=== PATIENT | male | born 1955 | race Caucasian/White ===

== ENCOUNTER → 2019-02-16 | Outpatient (CLI) | payer OTHER ==
[~2019-02-16] MED LIST: OMEP20TA62 PO; OMNIPAQUE 350 MG/ML, 75ML BOTTLE ONE
== END | disposition home or self-care (01) ==
LOC: RAD 12:43 → EDSTATUS 13:00
PROVIDERS: ATTEND Internal Medicine
DX: J84.10 Pulmonary fibrosis, unspecified (principal); R91.8 Other nonspecific abnormal finding of lung field; R59.0 Localized enlarged lymph nodes
CPT/HCPCS: 36415; 71260; 82565; Q9967

== ENCOUNTER → 2019-03-20 | Outpatient (CLI) | payer OTHER ==
[~2019-03-20] MED LIST changes: -OMNIPAQUE 350 MG/ML, 75ML BOTTLE ONE
== END | disposition home or self-care (01) ==
LOC: CARD 12:37
PROVIDERS: ATTEND Internal Medicine
DX: R05 Cough (principal)
CPT/HCPCS: 94060; 94618; 94726; 94729

== ENCOUNTER 2019-04-03 07:41 | Inpatient (IN) | payer OTHER ==
[~2019-04-03] VITALS: Ht 175.3 cm; Wt 77.7 kg
[~2019-04-03 07:41] MED LIST changes: +ACET325T14 PO; +ALBU8.5H8 INH; +BUPIVACAINE/PF 0.5% ONE; +CELE200C PO; +CHOL500015 PO; +EPINEPHRINE 1 MG/ML, 1ML ONE; +LACT1CAP35 PO; +UMEC1DIS INH
[2019-04-03 08:27] VITALS: BP 120/79
[2019-04-03] MEDS ORDERED: FENTANYL PF 250 MCG/5ML ONE (08:27)
[2019-04-03] MEDS ORDERED: MIDAZOLAM 1 MG/ML, 2ML ONE (08:27)
[2019-04-03] MEDS ORDERED: NEOSTIGMINE 1 MG/ML, 10ML ONE (08:29)
[2019-04-03] MEDS ORDERED: ROCURONIUM 10MG/ML,5ML ONE (08:29)
[2019-04-03] MEDS ORDERED: LACTATED RINGERS 1,000 ML IV SCH (08:29)
[2019-04-03] MEDS ORDERED: GLYCOPYRROLATE 0.2MG/1ML, 5ML ONE (08:29)
[2019-04-03] MEDS ORDERED: PROPOFOL 10 MG/ML, 20ML ONE (08:29)
[2019-04-03] MEDS ORDERED: CEFAZOLIN 1,000 MG ONE (08:29)
[2019-04-03] MEDS ORDERED: GABAPENTIN 300 MG CAPSULE PO ONE (08:30)
[2019-04-03] MEDS ORDERED: ACETAMINOPHEN 500 MG TABLET PO ONE (08:30)
[2019-04-03] MEDS ORDERED: OXYcodone 5 MG/5 ML ORAL.SOL UDC PO PRN ×2 (09:00→10:30)
[2019-04-03] MEDS ORDERED: MORPHINE SULFATE 4 MG/ML, 1ML IVPush PRN (09:00)
[2019-04-03] MEDS ORDERED: MEPERIDINE/PF 25MG/ML,1ML IVPush PRN (09:00)
[2019-04-03] MEDS ORDERED: FENTANYL PF 100 MCG/2ML IV PRN (09:00)
[2019-04-03] MEDS ORDERED: HYDROmorphone 2 MG/ML, 1ML IVPush PRN ×2 (09:00→10:30)
[2019-04-03] MEDS ORDERED: LABETALOL 5MG/ML, 20ML IV PRN (09:00)
[2019-04-03] MEDS ORDERED: hydrALAzine 20 MG/ML, 1ML IV PRN ×2 (09:00→10:30)
[2019-04-03] MEDS ORDERED: PROMETHAZINE 25 MG/ML, 1ML IV PRN (09:00)
[2019-04-03] MEDS ORDERED: GABAPENTIN 300 MG CAPSULE ONE (09:01)
[2019-04-03] MEDS ORDERED: ACETAMINOPHEN 500 MG TABLET ONE (09:01)
[2019-04-03 09:33] LABS: BASOPHILS # (AUTO) 0.02 x10^3/uL (0-0.1); BASOPHILS % (AUTO) 0 % (0-1); EOSINOPHILS # (AUTO) 0.03 x10^3/uL (0-0.4); EOSINOPHILS % (AUTO) 1 % (1-7); LYMPHOCYTES # (AUTO) 0.35 x10^3/uL (1-3.4); LYMPHOCYTES % (AUTO) 5 % (22-44); MD NO; MEAN CORPUSCULAR HEMOGLOBIN 27.8 pg (27.5-34.5); MEAN CORPUSCULAR HGB CONC 32.2 g/dL (33.2-36.2); MEAN CORPUSCULAR VOLUME 86.3 fL (81-97); MEAN PLATELET VOLUME 8.1 fL (7.4-10.4); MONOCYTES # (AUTO) 0.58 x10^3/uL (0.2-0.8); MONOCYTES % (AUTO) 9 % (2-9); NEUTROPHILS # (AUTO) 5.74 x10^3/uL (1.8-6.8); NEUTROPHILS % (AUTO) 85 % (42-75); PLATELET COUNT 387 x10^3/uL (130-400); RED BLOOD COUNT 3.81 x10^6/uL (4.38-5.82); RED CELL DISTRIBUTION WIDTH 13.7 % (9.4-14.8)
[2019-04-03] MEDS ORDERED: SUGAMMADEX 200 MG/2 ML IVPush ONE (09:33)
[2019-04-03] MEDS ORDERED: KETOROLAC 30 MG/1 ML ONE (09:33)
[2019-04-03 09:34] LABS: ALANINE AMINOTRANSFERASE 23 U/L (12-78); ALBUMIN 2.4 g/dL (3.4-5.0); ANION GAP 6 mmol/L (5-15); CHLORIDE 103 mmol/L (98-107); CREATININE 0.62 mg/dL (0.7-1.3)
[2019-04-03 09:36] LABS: ALKALINE PHOSPHATASE 69 U/L (45-117); BILIRUBIN,TOTAL 0.5 mg/dL (0.2-1.0); TOTAL PROTEIN 7.5 g/dL (6.4-8.2)
[2019-04-03 09:37] LABS: INTERNATIONAL NORMALIZED RATIO 1.07 (0.93-1.1); PROTHROMBIN TIME 11.4 Seconds (9.6-11.5)
[2019-04-03] MEDS ORDERED: morphine SULFATE 10 MG/ML, 1ML ONE (10:21)
[2019-04-03] MEDS ORDERED: DIPHENHYDRAMINE 50 MG/ML, 1ML IV PRN (10:30)
[2019-04-03] MEDS ORDERED: PROMETHAZINE 25 MG/ML, 1ML IM PRN (10:30)
[2019-04-03] MEDS ORDERED: HEPARIN 5,000 UNITS/ML, 1ML SQ SCH (10:30)
[2019-04-03 11:45] VITALS: BP 100/66
[2019-04-03] MEDS ORDERED: TEMPLATE NON-FORMULARY MED. (Albuterol Sulfate (Proair Hfa) 1 PUFF) INH SCH (13:00)
[2019-04-03] MEDS ORDERED: ALBUTEROL SULFATE 2.5 MG/3 ML NPPB PRN (13:00)
[2019-04-03] MEDS: ACETAMINOPHEN 500 MG TABLET PO SCH ×2 (13:06→18:48)
[2019-04-03] MEDS: POTASSIUM CHLORIDE 20 MEQ in D5%-LACTATED RINGERS 1,000 ML IV SCH (13:06)
[2019-04-03] MEDS ORDERED: IPRATROPIUM 0.5 MG/2.5 ML INHA NPPB PRN (13:30)
[2019-04-03] MEDS ORDERED: ALBUTEROL/IPRATROPIUM 2.5MG/0.5MG, 3 ML NPPB PRN (14:30)
[2019-04-03 16:00] VITALS: BP 95/57
[2019-04-03] MEDS: KETOROLAC 30 MG/1 ML IV PRN ×2 (16:06→22:06)
[2019-04-03 20:03] VITALS: BP 110/71
[2019-04-03] MEDS: ALBUTEROL/IPRATROPIUM 2.5MG/0.5MG, 3 ML NPPB SCH (21:00)
[2019-04-03] MEDS: BUDESONIDE 0.5 MG/2 ML INHA NPPB SCH (21:00)
[2019-04-03 23:35] VITALS: BP 117/57
[2019-04-04] MEDS: POTASSIUM CHLORIDE 20 MEQ in D5%-LACTATED RINGERS 1,000 ML IV SCH ×2 (01:28→14:56)
[2019-04-04] MEDS: ACETAMINOPHEN 500 MG TABLET PO SCH ×4 (01:38→21:31)
[2019-04-04] MEDS: ALBUTEROL/IPRATROPIUM 2.5MG/0.5MG, 3 ML NPPB SCH ×4 (03:45→20:20)
[2019-04-04 03:53] VITALS: BP 106/66
[2019-04-04] MEDS: KETOROLAC 30 MG/1 ML IV PRN ×3 (05:41→23:48)
[2019-04-04 05:59] LABS: BASOPHILS # (AUTO) 0.01 x10^3/uL (0-0.1); BASOPHILS % (AUTO) 0 % (0-1); EOSINOPHILS % (AUTO) 4 % (1-7); LYMPHOCYTES # (AUTO) 0.51 x10^3/uL (1-3.4); LYMPHOCYTES % (AUTO) 10 % (22-44); MD NO; MEAN CORPUSCULAR HEMOGLOBIN 27.9 pg (27.5-34.5); MEAN CORPUSCULAR HGB CONC 32.4 g/dL (33.2-36.2); MEAN CORPUSCULAR VOLUME 86.2 fL (81-97); MEAN PLATELET VOLUME 8.1 fL (7.4-10.4); MONOCYTES # (AUTO) 0.44 x10^3/uL (0.2-0.8); MONOCYTES % (AUTO) 9 % (2-9); NEUTROPHILS # (AUTO) 3.99 x10^3/uL (1.8-6.8); NEUTROPHILS % (AUTO) 77 % (42-75); PLATELET COUNT 326 x10^3/uL (130-400); RED BLOOD COUNT 3.52 x10^6/uL (4.38-5.82)
[2019-04-04 06:05] LABS: ANION GAP 4 mmol/L (5-15); CALCIUM 8.2 mg/dL (8.5-10.1); CHLORIDE 105 mmol/L (98-107); CREATININE 0.61 mg/dL (0.7-1.3)
[2019-04-04] MEDS: BUDESONIDE 0.5 MG/2 ML INHA NPPB SCH ×2 (07:02→20:20)
[2019-04-04 07:10] VITALS: BP 124/74
[2019-04-04] MEDS: HEPARIN 5,000 UNITS/ML, 1ML SQ SCH ×3 (08:17→23:51)
[2019-04-04] MEDS: OMEPRAZOLE 20 MG CAPSULE.DR PO SCH (08:17)
[2019-04-04] MEDS ORDERED: TEMPLATE NON-FORMULARY MED. (Umeclidinium Brm/Vilanterol Tr (Anoro Ellipta 62.5-25 Mcg Inh INH SCH (09:00)
[2019-04-04] MEDS ORDERED: ALBU1.25 NEB (12:57)
[2019-04-04 13:36] VITALS: BP 124/76
[2019-04-04 19:34] VITALS: BP 107/69
[2019-04-05] MEDS: ACETAMINOPHEN 500 MG TABLET PO SCH ×3 (00:59→08:34)
[2019-04-05 01:11] VITALS: BP 109/70
[2019-04-05] MEDS: ALBUTEROL/IPRATROPIUM 2.5MG/0.5MG, 3 ML NPPB SCH ×2 (02:12→07:25)
[2019-04-05] MEDS: POTASSIUM CHLORIDE 20 MEQ in D5%-LACTATED RINGERS 1,000 ML IV SCH (03:05)
[2019-04-05] MEDS: BUDESONIDE 0.5 MG/2 ML INHA NPPB SCH (07:25)
[2019-04-05 07:51] VITALS: BP 105/65
[2019-04-05] MEDS: HEPARIN 5,000 UNITS/ML, 1ML SQ SCH (08:34)
[2019-04-05] MEDS: OMEPRAZOLE 20 MG CAPSULE.DR PO SCH (08:34)
[2019-04-05] MEDS: KETOROLAC 30 MG/1 ML IV PRN (08:36)
[2019-04-05 14:00] VITALS: BP 116/74
== END 2019-04-05 14:30 | disposition home or self-care (01) | DRG 166 ==
LOC: ORIP 07:41 → 4NE 11:31
PROVIDERS: ADMIT Surgery; ATTEND Hospitalist
PROC: 0BBC4ZX Excision of Right Upper Lung Lobe, Percutaneous Endoscopic Approach, Diagnostic (ICD-10-PCS; 2019-04-03)
PROC: 0BBD4ZX Excision of Right Middle Lung Lobe, Percutaneous Endoscopic Approach, Diagnostic (ICD-10-PCS; 2019-04-03)
PROC: 0W9930Z Drainage of Right Pleural Cavity with Drainage Device, Percutaneous Approach (ICD-10-PCS; 2019-04-03)
PROC: 0BBF4ZX Excision of Right Lower Lung Lobe, Percutaneous Endoscopic Approach, Diagnostic (ICD-10-PCS; principal; 2019-04-03 10:00)
PROC: 0WP9X0Z Removal of Drainage Device from Right Pleural Cavity, External Approach (ICD-10-PCS; 2019-04-05)
DX: J84.9 Interstitial pulmonary disease, unspecified (principal); J96.20 Acute and chronic respiratory failure, unspecified whether with hypoxia or hypercapnia; J98.11 Atelectasis; D64.9 Anemia, unspecified; K90.0 Celiac disease; L30.9 Dermatitis, unspecified; M65.9 Synovitis and tenosynovitis, unspecified; Z82.0 Family history of epilepsy and other diseases of the nervous system; Z88.8 Allergy status to other drugs, medicaments and biological substances
CPT/HCPCS: 36415; 84145; J7121; J7620; J7626; S0020; 71045; 80048; 80053; 85025; 85610; 85730; 86850; 86900; 87070; 87075; 87102; 87116; 87205; 87206; 87252; 88307; 93005; 94640; C1729; G0378; J0171; J0690; J1644; J1885; J2250; J2704; J2710; J3010; J3480; J2270; J7120